=== PATIENT | female | born 1970 | race Asian ===

== ENCOUNTER 2023-04-08 00:43 | Inpatient (IN) | payer SELFPAY ==
[2023-04-08] VITALS (16 sets, daily range): BP systolic 125–154; BP diastolic 77–93; PULSE 57–103; RESP 11–24; TEMP 35.5–36.6; O2SAT 77–100; BMI 32.6; BMI 36.3
--- NOTE | 2023-04-08 00:52 | ED.RN ---
THIS RN QUESTIONED PT VISITORS IF SHE HAS ANY ALLERGIES OR PERTINENT PAST MEDICAL HISTORY. AMARI CALLED PT . HE IS UNSURE OF ANY PAST MEDICAL HISTORY/ALLERGIES. PT NOT RESPONSIVE TO VOCAL STIMULI.
--- NOTE | 2023-04-08 00:54 | RAD_ITS ---
INDICATION: ? Aspiration EXAMINATION/TECHNIQUE: X-RAY - AP view chest COMPARISON: None. FINDINGS: LINES/DEVICES: None. LUNGS: No pulmonary edema or focal airspace consolidation. No sizable pleural effusion. No pneumothorax detected. MEDIASTINUM AND CARDIOVASCULAR STRUCTURES: Heart size within normal limits for imaging technique. Central airways and mediastinal contour are unremarkable. BONES AND SOFT TISSUES: No acute findings. RAD/Chest 1 View (Portable) IMPRESSION: No radiographic evidence of acute cardiopulmonary disease. Electronically Signed: Ari Mcnally MD at 2:23 EDT ,
--- NOTE | 2023-04-08 00:54 | CT_ITS ---
INDICATION: Altered mental status EXAMINATION: CT Head or Brain W/O Contrast Injection TECHNIQUE: Multiple axial images were obtained of the head without intravenous contrast. A radiation dose optimization technique was used for this scan. IV Contrast dosage and agent: None. COMPARISON: None FINDINGS: BRAIN PARENCHYMA: No intra- or extra-axial hemorrhage. No evidence of acute major territorial infarct. No intracranial mass or mass effect. There is preservation of the jasso/white matter interface. Posterior fossa structures are unremarkable. Tiny benign basal ganglia calcifications. CSF SPACES: Appropriate for age. No hydrocephalus. Basal cisterns are patent. CALVARIUM, SKULL BASE, PARANASAL SINUSES AND MASTOID AIR CELLS: Calvarium is intact. Mild sinus mucosal thickening. Mastoid air cells are well-pneumatized. ORBITS: Unremarkable. CT/Brain/Head without Contrast IMPRESSION: No evidence of acute intracranial abnormality. Electronically Signed: Ari Mcnlaly MD at 1:38 EDT ,
--- NOTE | 2023-04-08 00:54 | EKG12_ITS ---
Test Reason : DYSRHYTHMIA Blood Pressure : / mmHG Vent. Rate : 075 BPM Atrial Rate : 075 BPM P-R Int : 174 ms QRS Dur : 072 ms QT Int : 416 ms P-R-T Axes : 052 066 051 degrees QTc Int : 464 ms Normal sinus rhythm Normal ECG Confirmed by KRISTOPHER MARI, NIESHA ([id number]), school photograph editor DEENA CARPIO ([id number]) on 04/09/2023 11:34:45 AM Referred By: HANSEL Confirmed By:HARISH SUMMERS MD
[2023-04-08 01:00] LABS: Allen Test Positive; Base Excess 1 mmol/L (-2 to +2); Bicarbonate 26.5 mmol/L (22-26); Blood Gas Specimen Type ART; O2 Delivery Device Room Air; PO2 74 mmHG (75-100); SITE L Radial; SO2 93 % (95-99); Total Carbon Dioxide 28 mmol/L; pCO2 49.8 mmHg (35-45); pH 7.34 (7.35-7.45)
[2023-04-08] MEDS: 0.9% Normal Saline 1,000 ML 999 ML IV (01:02)
[2023-04-08] MEDS: Ondansetron 4 MG/2 ML Vial IV ×2 (01:03→02:08)
[2023-04-08 01:09] LABS: Absolute Lymphocyte Count 4.13 X10^3/uL (0.83-4.51); Absolute Neutrophil Count 5.1 X10^3/uL (2.0-7.7); Basophil# 0.06 X10^3/uL; Basophil% 0.6 % (0-1); Eosinophil# 0.21 X10^3/uL; Eosinophils% 2.1 % (0-5); Hematocrit 41.5 % (37-47); Hemoglobin 12.2 g/dL (12.0-15.0); Lymphocyte # 4.13 X10^3/ul (0.83-4.51); Lymphocyte % 40.4 % (19-41); Mean Corp Hgb Conc 29.4 g/dL (32-36); Mean Corpuscular Hgb 19.9 pg (27.0-32.0); Mean Corpuscular Volume 67.6 fL (81-99); Mean Platelet Vol. 11.1 fl (6.2-12.0); Monocyte# 0.68 X10^3/uL; Monocyte% 6.7 % (0-10); NRBC Flagged by Analyzer 0 % (0-5); Neutrophil # 5.11 X10^3/uL (2.7-7.7); Neutrophil % 49.9 % (47-70); Platelet Count 283 K/mm3 (150-450); RBC Distribution Width CV 15.9 % (11.6-14.6); RBC Distribution Width SD 36.8 fl (35.1-43.9); Red Blood Count 6.14 M/mm3 (4.2-5.4); White Blood Count 10.2 K/mm3 (4.4-11.0)
[2023-04-08 01:32] LABS: Bacteria 0 SEEN /hpf (None Seen); Mucous, Urine 0 SEEN /hpf (<or=2+); Red Blood Cells-Urine 0 SEEN /hpf (0-5); Squamous Epithelial Cells - UA 0 SEEN /hpf (5-10); White Blood Cells 0 SEEN /hpf (0-5)
[2023-04-08 01:34] LABS: Color, Urine Yellow (Yellow); Glucose, Dipstick Normal (Normal); Ketone-Dipstick Negative (Negative); Leukocyte Esterase-Dipstick Negative /ul (Negative); Nitrite-Dipstick Negative (Negative); Occult Blood-Urine 10 /ul (Negative); Protein-Dipstick Negative (Negative); Specific Gravity, Urine 1.015 (1.002-1.030); Urine Bilirubin Dipstick Negative (Negative); Urine Clarity Clear (Clear); Urine Urobilinogen Normal (Normal)
[2023-04-08 01:38] LABS: Acetaminophen (Tylenol) Level < 2.0 ug/mL (10.0-30.0); Alcohol, Blood (Medical)-Serum < 3.0 mg/dL; Salicylate < 1.7 mg/dL (2.8-20.0)
--- NOTE | 2023-04-08 01:38 | CT_ITS ---
INDICATION: altered mental status EXAMINATION: CTA CAROTIDS AND BRAIN TECHNIQUE: Routine CTA of the head and neck was performed with post processing of the angiographic images for volumetric reconstructions. In addition, images were obtained of the [place]. Nascet criteria using the distal ICAs for comparison were used for evaluation of stenoses. 2-D and 3-D reconstructions were reviewed. A radiation dose optimization technique was used for this scan. IV Contrast dosage and agent: 100 cc [id number] COMPARISON: Concurrent unenhanced CT brain FINDINGS: --NECK: AORTIC ARCH AND BRANCHES: No aneurysm, dissection, occlusion or significant stenosis. RIGHT CCA: No occlusion, significant stenosis or dissection. RIGHT ICA: No occlusion, significant stenosis or dissection. LEFT CCA: No occlusion, significant stenosis or dissection. LEFT ICA: No occlusion, significant stenosis or dissection. RIGHT VERTEBRAL ARTERY: No occlusion, significant stenosis or dissection. LEFT VERTEBRAL ARTERY: No occlusion, significant stenosis or dissection. NECK SOFT TISSUES: Unremarkable. LUNG APICES: Clear. BONES: Unremarkable. --HEAD: --Anterior circulation: ICAs: No significant stenosis at the intracranial/visualized segments. ACAs: Congenital absence right A1 segment. Otherwise, right anterior cerebral artery is patent with no significant stenosis, supplied by anterior communicating artery. Left anterior cerebral artery with no significant stenosis. ACOM: Present. MCAs: No significant stenosis at the visualized segments. --Posterior circulation: PCOMs: Patent on the right and absent on the left. cash on delivery clerk: No significant stenosis at the visualized segments. BASILAR ARTERY: No significant stenosis. VERTEBRAL ARTERIES: No significant stenosis at the intradural/visualized segments. No evidence of intracranial aneurysm, enhancing mass or vascular malformation. CT/CTA Head AND Neck W/ Contrast IMPRESSION: Negative CTA Head and Neck. Electronically Signed: Ari Mcnally MD at 2:53 EDT ,
[2023-04-08 01:39] LABS: AST(SGOT) 12 U/L (15-37); Alanine Aminotransfer ALT/SGPT 18 U/L (13-56); Albumin, Serum 3.4 g/dL (3.2-5.0); Alkaline Phosphatase 76 U/L (45-117); Anion Gap 6 (5-15); BUN 14 mg/dL (7-18); Bilirubin, Direct 0.09 mg/dL (0.00-0.30); Calcium,Total 8.5 mg/dL (8.5-10.1); Chloride 108 mmol/L (98-107); Estimated Creatinine Clearance 58.12 ml/min; Globulin 3.9 g/dL (2.2-4.2); Glucose 151 mg/dL (74-106); Potassium 3.6 mmol/L (3.5-5.1); Protein, Total 7.3 g/dL (6.4-8.2); Sodium Level 139 mmol/L (136-145)
[2023-04-08 02:11] LABS: Amphetamine Urine VISTA NEGATIVE (<1000 ng/mL); Barbiturate Urine VISTA NEGATIVE (< 200 ng/mL); Benzodiazepine Urine VISTA NEGATIVE (< 200 ng/mL); Cocaine Urine VISTA NEGATIVE (< 300 ng/mL); Ecstacy Urine VISTA NEGATIVE (< 500 ng/mL); Methadone Urine VISTA NEGATIVE (< 300 ng/mL); PCP Urine VISTA NEGATIVE (< 25 ng/mL); THC Urine VISTA POSITIVE (< 50 ng/mL); Vista UDS pH Range 6
--- NOTE | 2023-04-08 05:08 | PCM.HP.STD ---
HPI - General General Date of Admission: 04/08/23 Date of Service: 04/08/23 Chief Complaint: Unresponsiveness HPI Narrative DINO MORENO, is a 52 F with no medical history who presents emergency department with syncope. Reportedly patient was throwing up and then she passed out. History was obtained from emergency department doctor since patient's was lethargic and had a language barrier. Family was unavailable and it was nighttime to obtain history by phone call. Per emergency department doctor patient was obtunded on arrival and desaturated into the 80s for which reason nasal cannula oxygen was placed. [facility], [facility] Medical History unable to obtain Home Medications Unobtainable 04/08/23 [History Last Taken Unknown] Allergy/AdvReac Type Severity Reaction Status Date / Time Unable to Assess Allergy Verified 04/08/23 00:50 unable to obtain unable to obtain Social History Smoking Status: Unknown if ever smoked ROS Review of Systems ROS Unobtainable: due to mental status Vital Signs Vital Signs Vital Signs: 04/08/23 00:45 04/08/23 00:48 04/08/23 00:48 Temperature 96.8 F L 96.8 F L Temperature Source Temporal Temporal Pulse Rate 103 H 91 57 L Respiratory Rate 24 H 23 H 24 H Blood Pressure 143/93 H 143/93 H 143/93 H Blood Pressure Mean 109 109 109 Pulse Ox 88 100 98 Oxygen Delivery Method Room Air Room Air Room Air Oxygen Flow Rate (L/min) 04/08/23 01:31 04/08/23 01:36 04/08/23 01:48 Temperature 96.1 F L Temperature Source Core Pulse Rate 73 72 69 Respiratory Rate 16 16 14 Blood Pressure 146/78 H Blood Pressure Mean 100 Pulse Ox 77 96 100 Oxygen Delivery Method Room Air Nasal Cannula Room Air Oxygen Flow Rate (L/min) 4 04/08/23 02:05 04/08/23 02:05 04/08/23 02:52 Temperature 96.0 F L 95.9 F L Temperature Source Core Core Pulse Rate 85 82 66 Respiratory Rate 19 H 21 H 11 L Blood Pressure 143/86 H 143/86 H 133/81 H Blood Pressure Mean 105 105 98 Pulse Ox 100 100 100 Oxygen Delivery Method Room Air Nasal Cannula Nasal Cannula Oxygen Flow Rate (L/min) 4 4 04/08/23 03:00 04/08/23 03:00 04/08/23 04:00 Temperature 96.2 F L 96.4 F L Temperature Source Core Core Pulse Rate 57 L 57 L 59 L Respiratory Rate 13 13 11 L Blood Pressure 131/82 H 131/82 H 145/91 H Blood Pressure Mean 98 98 109 Pulse Ox 100 100 100 Oxygen Delivery Method Nasal Cannula Nasal Cannula Nasal Cannula Oxygen Flow Rate (L/min) 3 3 3 04/08/23 04:00 Temperature Temperature Source Pulse Rate 59 L Respiratory Rate 11 L Blood Pressure 145/91 H Blood Pressure Mean 109 Pulse Ox 100 Oxygen Delivery Method Nasal Cannula Oxygen Flow Rate (L/min) 3 Weight Weight: 86.3 kg Body Mass Index (BMI) 32.6 Physical Exam Narrative Physical exam: General: Well-nourished, well-developed. Head: Normocephalic, atraumatic, no tenderness Eyes: Dilated pupils ENT, no trauma, no rhinorrhea Neck: Nontender, No thyromegaly. CVS: Regular rate and rhythm. S1-S2 present. No murmur, gallop or rub. Respiratory : clear to auscultation bilaterally, chest wall nontender Abdomen: Soft, nontender, nondistended, normal bowel sounds, no masses : Keen catheter in place Back: Nontender, no CVA tenderness Extremities: Nontender full range of motion, no trauma Skin: Normal color, no trauma, abrasions Neuro: Lethargic. Psychiatry: Normal mood. Normal affect. Results Lab / Micro Data 04/08/23 00:52 04/08/23 00:52 Labs: Laboratory Results - last 24 hr 04/08/23 00:52: WBC 10.2, RBC 6.14 H, Hgb 12.2, Hct 41.5, MCV 67.6 L, MCH 19.9 L, MCHC 29.4 L, RDW Std Deviation 36.8, RDW Coeff of [place] 15.9 H, Plt Count 283, MPV 11.1, Immature Gran % (Auto) 0.300, Neut % (Auto) 49.9, Lymph % (Auto) 40.4, [place] % (Auto) 6.7, Eos % (Auto) 2.1, Baso % (Auto) 0.6, Absolute Neuts (auto) 5.1, Absolute Lymphs (auto) 4.13, Nucleated RBC % 0, Sodium 139, Potassium 3.6, Chloride 108 H, Carbon Dioxide 25.0, Anion Gap 6, BUN 14, Creatinine 1.00, Estim Creat Clear Calc 58.12, Est GFR (MDRD) Af Amer TNP, Est GFR (MDRD) Non-Af TNP, BUN/Creatinine Ratio 14.0, Glucose 151 H, Calcium 8.5, Total Bilirubin 0.20, Direct Bilirubin 0.09, AST 12 L, ALT 18, Alkaline Phosphatase 76, Ammonia 15.0, Total Protein 7.3, Albumin 3.4, Globulin 3.9, TSH 2.90, Salicylates < 1.7 L, Acetaminophen < 2.0 L, Ethyl Alcohol < 3.0 04/08/23 01:25: Urine Color Yellow, Urine Clarity Clear, Urine pH 7.0, Ur Specific [place] 1.015, Urine Protein Negative, Urine Glucose (UA) Normal, Urine Ketones Negative, Urine Occult Blood 10 H, Urine Nitrite Negative, Urine Bilirubin Negative, Urine Urobilinogen Normal, Ur Leukocyte Esterase Negative, Urine RBC 0 SEEN, Urine WBC 0 SEEN, Ur Squamous Epith Cells 0 SEEN, Urine Bacteria 0 SEEN, Urine Mucus 0 SEEN, Urine Opiates Screen NEGATIVE, Urine Methadone Screen NEGATIVE, Ur Barbiturates Screen NEGATIVE, Ur Phencyclidine Scrn NEGATIVE, Ur Amphetamines Screen NEGATIVE, MDMA (Ecstasy) Screen NEGATIVE, U Benzodiazepines Scrn NEGATIVE, Urine Cocaine Screen NEGATIVE, U Cannabinoids Screen POSITIVE H, Ur Drug Screen Comment ABG Data ABG results: ABG 04/08/23 00:56 Specimen Type ART Sample Site L Radial pH 7.34 L Bicarbonate Actual 26.5 H Total CO2 28 Base Excess 1 O2 Saturation 93 L ABG pCO2 49.8 H ABG pO2 74 L Asad Test Positive O2 Delivery Device Room Air Radiology Impression Brain CT 04/08/23 00:54 IMPRESSION: No evidence of acute intracranial abnormality. Electronically Signed: Ari Mcnally MD at 1:38 EDT , Chest X-Ray 04/08/23 00:54 IMPRESSION: No radiographic evidence of acute cardiopulmonary disease. Electronically Signed: Ari Mcnally MD at 2:23 EDT , Head/Neck CTA 04/08/23 01:38 IMPRESSION: Negative CTA Head and Neck. Electronically Signed: Ari Mcnally MD at 2:53 EDT , Assessment & Plan Assessment/Plan (1) Unresponsive state: (2) Syncope: QUALIFIERS: Syncope type: vasovagal syncope Qualified Code(s): R55 - Syncope and collapse (3) Nausea & vomiting: QUALIFIERS: Vomiting type: unspecified Qualified Code(s): R11.2 - Nausea with vomiting, unspecified (4) Aspiration into airway: QUALIFIERS: Encounter type: initial encounter Qualified Code(s): T17.908A - Unspecified foreign body in respiratory tract, part unspecified causing other injury, initial encounter PLAN: Plan Unresponsive state Head and neck CTA negative. Brain CT negative Resolved with patient able to respond but lethargic. Admitted PCU. Clinical monitoring. Keep NPO. Gentle IV hydration Syncope EKG shows sinus rhythm. Check echocardiogram. Nausea and vomiting Cannot rule out gastroenteritis/gastritis. Protonix ordered. Aspiration Chest x-ray independent interpreted did not show any acute cardiopulmonary process and I agree with radiology interpretation. Review of labs did not show any leukocytosis. However with hypoxia started on Unasyn at the Emergency and continued. Trend CBC DVT prophylaxis: Subcutaneous Lovenox ordered. Charges/Coding Visit Charges Inpatient E&M: 76782 Init Hosp L3
--- NOTE | 2023-04-08 05:15 | EDS_ITS ---
HPI History of Present Illness Chief Complaint: Unresponsive Informant: family Narrative Narrative: Patient is a 52-year-old female who does not speak Czech. She was brought in by family. Family states that they were up this evening and they were sitting around talking when patient suddenly started having bouts of vomiting and then passed out. They states she would not awake and therefore they brought her to the hospital for evaluation. The family is unaware of any medical condition or daily medications and patient cannot offer any further history based on language barrier and the fact that she is unresponsive. PFSH PFSH Medical History unable to obtain unable to obtain Home Medications Unobtainable 04/08/23 [History Last Taken Unknown] Allergy/AdvReac Type Severity Reaction Status Date / Time Unable to Assess Allergy Verified 04/08/23 00:50 Social History Smoking Status: Unknown if ever smoked ROS ROS ED Review of Systems ROS Unobtainable: due to mental status EXAM Physical Exam Const Vital Signs: 04/08/23 00:45 04/08/23 00:48 04/08/23 00:48 Temperature 96.8 F L 96.8 F L Temperature Source Temporal Temporal Pulse Rate 103 H 91 57 L Respiratory Rate 24 H 23 H 24 H Blood Pressure 143/93 H 143/93 H 143/93 H Blood Pressure Mean 109 109 109 Pulse Ox 88 100 98 Oxygen Delivery Method Room Air Room Air Room Air Oxygen Flow Rate (L/min) 04/08/23 01:31 04/08/23 01:36 04/08/23 01:48 Temperature 96.1 F L Temperature Source Core Pulse Rate 73 72 69 Respiratory Rate 16 16 14 Blood Pressure 146/78 H Blood Pressure Mean 100 Pulse Ox 77 96 100 Oxygen Delivery Method Room Air Nasal Cannula Room Air Oxygen Flow Rate (L/min) 4 04/08/23 02:05 04/08/23 02:05 04/08/23 02:52 Temperature 96.0 F L 95.9 F L Temperature Source Core Core Pulse Rate 85 82 66 Respiratory Rate 19 H 21 H 11 L Blood Pressure 143/86 H 143/86 H 133/81 H Blood Pressure Mean 105 105 98 Pulse Ox 100 100 100 Oxygen Delivery Method Room Air Nasal Cannula Nasal Cannula Oxygen Flow Rate (L/min) 4 4 04/08/23 03:00 04/08/23 03:00 04/08/23 04:00 Temperature 96.2 F L 96.4 F L Temperature Source Core Core Pulse Rate 57 L 57 L 59 L Respiratory Rate 13 13 11 L Blood Pressure 131/82 H 131/82 H 145/91 H Blood Pressure Mean 98 98 109 Pulse Ox 100 100 100 Oxygen Delivery Method Nasal Cannula Nasal Cannula Nasal Cannula Oxygen Flow Rate (L/min) 3 3 3 04/08/23 04:00 Temperature Temperature Source Pulse Rate 59 L Respiratory Rate 11 L Blood Pressure 145/91 H Blood Pressure Mean 109 Pulse Ox 100 Oxygen Delivery Method Nasal Cannula Oxygen Flow Rate (L/min) 3 Positive well nourished, well developed and obese General Appearance ED: well developed Nutritional Appearance: obese HEENT Reports moist mucous membranes HEENT Narrative: No tongue or lip swelling no oral lesions no airway edema or compromise Eyes EOMs intact bilaterally Eyes Narrative: Pupils are dilated and sluggish to respond to light there is mild scleral injection noted Neck supple Neck Narrative: No nuchal rigidity or meningeal signs Chest Wall palpation of chest normal Chest Narrative: No bony deformity or crepitance Resp normal respiratory effort and clear to auscultation bilaterally Resp Narrative: Breath sounds are diminished throughout but overall clear to auscultation with no signs of respiratory distress Cardio regular rate and regular rhythm Rate: other Other Details: Radial pulses are plus 2 out of 4 bilaterally are equal and symmetric GI non-distended GI Narrative: Abdomen is soft and nondistended with normal active bowel sounds. No rigidity or pulsatile mass Auscultation: normoactive bowel sounds Palpation: soft Extremity normal to inspection Neuro Neuro Narrative: Patient is lethargic/obtunded with GCS of 12. She can feel and localize pain in all extremities as well as a sternal rub. She will wake with this but then quickly fall back asleep. There is no obvious facial droop noted. When patient does awake she is able to turn her head both left and right going against any type of meningeal irritation. Sensorium / Orientation: lethargic Psych Psych Narrative: Patient has an obtunded affect Skin no rashes or lesions noted MDM MDM MDM Narrative Medical decision making narrative: Patient presented to the ER mildly tachycardic and unresponsive but she was breathing spontaneously and protecting her airway as she had a gag reflex and therefore I felt no need for emergent intubation. Differential diagnosis includes an acute subarachnoid bleed versus ischemic stroke versus aspiration pneumonia versus potential alcohol or drug ingestion. Because of her altered mental state basic labs and imaging studies were obtained. X-ray revealed no acute infiltrate. Noncontrast head CT revealed no acute bleed. Patient's pulse ox did drop into the mid to low 80s and with concern for aspiration blood cultures were obtained and she was started on Unasyn as well as oxygen. Work-up revealed no clinically significant findings other than positive THC in the patient's system which could account for her altered mental status and nausea and would correlate with her dilated pupils and mild scleral injection. Patient was washed in the ER for approximate mental status remained depressed with GCS of 12 but she continued to protect her airway. Of note when she did arrive she had few bouts of nausea and vomiting and her heart rate would go from 80 and 90 down to 40 indicating a strong vagal response which is most likely cause for syncope at home. At this time as patient is still unresponsive and requiring supplemental oxygen and being monitored for potential aspiration pneumonia I do not feel it is safe for her to be discharged. Therefore medicine was contacted and they do agree to watch the patient secondary to her depressed mental status and for potential of aspiration History & Record Review Discussion w/independent historian: Family Lab Data Attestation: I reviewed the patient's lab results. Labs: Laboratory Results - last 24 hr 04/08/23 04/08/23 00:52 01:25 WBC 10.2 RBC 6.14 H Hgb 12.2 Hct 41.5 MCV 67.6 L MCH 19.9 L MCHC 29.4 L RDW Std Deviation 36.8 RDW Coeff of [place] 15.9 H Plt Count 283 MPV 11.1 Immature Gran % (Auto) 0.300 Neut % (Auto) 49.9 Lymph % (Auto) 40.4 [place] % (Auto) 6.7 Eos % (Auto) 2.1 Baso % (Auto) 0.6 Absolute Neuts (auto) 5.1 Absolute Lymphs (auto) 4.13 Nucleated RBC % 0 Sodium 139 Potassium 3.6 Chloride 108 H Carbon Dioxide 25.0 Anion Gap 6 BUN 14 Creatinine 1.00 Estim Creat Clear Calc 58.12 Est GFR (MDRD) Af Amer TNP Est GFR (MDRD) Non-Af TNP BUN/Creatinine Ratio 14.0 Glucose 151 H Calcium 8.5 Total Bilirubin 0.20 Direct Bilirubin 0.09 AST 12 L ALT 18 Alkaline Phosphatase 76 Ammonia 15.0 Total Protein 7.3 Albumin 3.4 Globulin 3.9 TSH 2.90 Urine Color Yellow Urine Clarity Clear Urine pH 7.0 Ur Specific [place] 1.015 Urine Protein Negative Urine Glucose (UA) Normal Urine Ketones Negative Urine Occult Blood 10 H Urine Nitrite Negative Urine Bilirubin Negative Urine Urobilinogen Normal Ur Leukocyte Esterase Negative Urine RBC 0 SEEN Urine WBC 0 SEEN Ur Squamous Epith Cells 0 SEEN Urine Bacteria 0 SEEN Urine Mucus 0 SEEN Salicylates < 1.7 L Urine Opiates Screen NEGATIVE Urine Methadone Screen NEGATIVE Acetaminophen < 2.0 L Ur Barbiturates Screen NEGATIVE Ur Phencyclidine Scrn NEGATIVE Ur Amphetamines Screen NEGATIVE MDMA (Ecstasy) Screen NEGATIVE U Benzodiazepines Scrn NEGATIVE Urine Cocaine Screen NEGATIVE U Cannabinoids Screen POSITIVE H Ur Drug Screen Comment Ethyl Alcohol < 3.0 ABG Data ABG results: ABG 04/08/23 00:56 Specimen Type ART Sample Site L Radial pH 7.34 L Bicarbonate Actual 26.5 H Total CO2 28 Base Excess 1 O2 Saturation 93 L ABG pCO2 49.8 H ABG pO2 74 L Asad Test Positive O2 Delivery Device Room Air Radiography Diagnostic Testing: Clinical Impression(s) from Imaging Studies Brain CT 04/08/23 00:54 IMPRESSION: No evidence of acute intracranial abnormality. Electronically Signed: Ari Mcnally MD at 1:38 EDT , Chest X-Ray 04/08/23 00:54 IMPRESSION: No radiographic evidence of acute cardiopulmonary disease. Electronically Signed: Ari Mcnally MD at 2:23 EDT , Head/Neck CTA 04/08/23 01:38 IMPRESSION: Negative CTA Head and Neck. Electronically Signed: Ari Mcnally MD at 2:53 EDT , Chest x-ray as interpreted by the emergency medicine physician reveals no acute infiltrate pneumothorax or pleural effusion Management Discussion w/another healthcare provider: Hospitalist Discharge Plan Dx/Rx/DC Orders Clinical Impression: Unresponsive state, Marijuana use, Syncope, Nausea & vomiting Disposition Disposition: Acute Care [facility]
--- NOTE | 2023-04-08 07:48 | ECHOD_ITS ---
Reason For Study: SYNCOPE Procedure This was a 2D Doppler, Color Flow transthoracic echocardiogram. Technically difficult study due to language barrier. Patient scanned supine. Exam performed portable in patient room. Left Ventricle Normal LV size. The estimated ejection fraction is 65 %. No evidence for diastolic dysfunction. No regional wall motion abnormalities noted. Right Ventricle Normal RV size. Normal systolic function. Atria Normal left atrium. Normal right atrium. No doppler evidence for ASD. Mitral Valve There is no mitral valve stenosis. No mitral valve insufficiency. Tricuspid Valve There is no tricuspid stenosis. Unable to estimate RV systolic pressure due to inadequate jet, pulmonary artery pressure probably normal. Aortic Valve Trisinus/trileaflet aortic valve. There is no aortic stenosis. No aortic valve insufficiency. Pulmonic Valve There is no pulmonic valvular stenosis. No pulmonic valve insufficiency. Great Vessels Normal aortic root. MMode/2D Measurements & Calculations LVIDd: 4.2 cm IVSd: 1.3 cm Ao root diam: 3.0 cm LVIDs: 3.2 cm LVPWd: 1.0 cm FS: 23.7 % LAV(MOD-bp): 42.6 ml LVAd ap4: 21.9 cm2 SV(MOD-sp4): 41.1 ml LAV(MOD-bp) Indexed: 23.6 ml/m2 LVLd ap4: 7.3 cm LAV(MOD-sp2): 47.6 ml EDV(MOD-sp4): 54.3 ml LAV(MOD-sp4): 35.1 ml EDV(sp4-el): 56.0 ml LVAs ap4: 9.8 cm2 LVLs ap4: 5.9 cm ESV(MOD-sp4): 13.2 ml ESV(sp4-el): 13.8 ml EF(MOD-sp4): 75.8 % EF(sp4-el): 75.3 % SV(sp4-el): 42.1 ml LA dimension(2D): 3.4 cm LA A4 area: 15.0 cm2 RA A4 area: 6.3 cm2 TAPSE: 2.8 cm Time Measurements MV dec time: 0.16 sec Doppler Measurements & Calculations MV E max herson: 99.1 cm/sec Lat Peak E' Herson: 10.8 cm/sec Med Peak E' Herson: 8.0 cm/sec MV A max herson: 99.7 cm/sec E/E' lat: 9.1 E/E' med: 12.4 MV E/A: 0.99 MV V2 max: 99.8 cm/sec Ao V2 max: 143.5 cm/sec MV max P.0 mmHg MV dec slope: 628.3 cm/sec2 Ao max P.2 mmHg MV V2 mean: 54.9 cm/sec Ao V2 mean: 95.5 cm/sec MV mean P.5 mmHg Ao mean P.2 mmHg MV V2 VTI: 34.8 cm Ao V2 VTI: 33.8 cm AV (velocity ratio): 0.76 LV V1 max: 104.0 cm/sec PA V2 max: 87.1 cm/sec LV V1 max P.3 mmHg PA V2 mean: 59.7 cm/sec LV V1 mean P.4 mmHg LV V1 mean: 72.4 cm/sec LV V1 VTI: 25.7 cm ECHO/Echo Complete Interpretation Summary The estimated ejection fraction is 65 %. No evidence for diastolic dysfunction. Ordering Physician: Manuel Griffith Referring Physician: NO PCP Performed By: Vicki Hanson RCS
[2023-04-08] MEDS: Lactated Ringers 1,000 ML 75 ML IV ×2 (08:09→20:47)
--- NOTE | 2023-04-08 08:26 | PN.HOSP_ITS ---
Reason for Visit Reason for Visit: Diagnoses Nausea with vomiting, unspecified (04/08/23) Other symptoms and signs involving cognitive functions and awareness (04/08/23) Syncope and collapse (04/08/23) Unspecified foreign body in respiratory tract, part unspecified causing other injury, initial encounter (04/08/23) Subjective Subjective Patient resting comfortably in bed and wakes up on prompting Objective Data Objective Data Vital Signs: Vital Signs Temp Pulse Resp BP Pulse Ox O2 Del Method O2 Flow Rate 97.9 F 59 L 16 154/88 H 100 Nasal Cannula 4 04/08/23 08:24 04/08/23 06:43 04/08/23 06:43 04/08/23 06:43 04/08/23 06:43 04/08/23 06:43 04/08/23 06:43 Oxygen Flow Rate (L/min) 4 Oxygen Delivery Method Nasal Cannula Weight: 84.3 kg Body Mass Index (BMI) 36.3 Intake & Output: Intake and Output for Last 24 Hours 04/06/23 04/07/23 04/08/23 23:59 23:59 23:59 Intake Total 1112 / 1112 Balance 1112 / 1112 Lab / Micro Data 04/08/23 00:52 04/08/23 00:52 Labs: Laboratory Results - last 24 hr 04/08/23 00:52: WBC 10.2, RBC 6.14 H, Hgb 12.2, Hct 41.5, MCV 67.6 L, MCH 19.9 L , MCHC 29.4 L, RDW Std Deviation 36.8, RDW Coeff of Mariposa 15.9 H, Plt Count 283, MPV 11.1, Immature Gran % (Auto) 0.300, Neut % (Auto) 49.9, Lymph % (Auto) 40.4, [place] % (Auto) 6.7, Eos % (Auto) 2.1, Baso % (Auto) 0.6, Absolute Neuts (auto) 5.1, Absolute Lymphs (auto) 4.13, Nucleated RBC % 0, Sodium 139, Potassium 3.6, Chloride 108 H, Carbon Dioxide 25.0, Anion Gap 6, BUN 14, Creatinine 1.00, Estim Creat Clear Calc 58.12, Est GFR (MDRD) Af Amer TNP, Est GFR (MDRD) Non-Af TNP, BUN/Creatinine Ratio 14.0, Glucose 151 H, Calcium 8.5, Total Bilirubin 0.20, Direct Bilirubin 0.09, AST 12 L, ALT 18, Alkaline Phosphatase 76, Ammonia 15.0, Total Protein 7.3, Albumin 3.4, Globulin 3.9, TSH 2.90, Salicylates < 1.7 L, Acetaminophen < 2.0 L, Ethyl Alcohol < 3.0 04/08/23 01:25: Urine Color Yellow, Urine Clarity Clear, Urine pH 7.0, Ur Specific [place] 1.015, Urine Protein Negative, Urine Glucose (UA) Normal, Urine Ketones Negative, Urine Occult Blood 10 H, Urine Nitrite Negative, Urine Bili palmre Negative, Urine Urobilinogen Normal, Ur Leukocyte Esterase Negative, Urine RBC 0 SEEN, Urine WBC 0 SEEN, Ur Squamous Epith Cells 0 SEEN, Urine Bacteria 0 SEEN, Urine Mucus 0 SEEN, Urine Opiates Screen NEGATIVE, Urine Methadone Screen NEGATIVE, Ur Barbiturates Screen NEGATIVE, Ur Phencyclidine Scrn NEGATIVE, Ur Amphetamines Screen NEGATIVE, MDMA (Ecstasy) Screen NEGATIVE, U Benzodiazepines Scrn NEGATIVE, Urine Cocaine Screen NEGATIVE, U Cannabinoids Screen POSITIVE H, Ur Drug Screen Comment ABG Data ABG results: ABG 04/08/23 00:56 Specimen Type ART Sample Site L Radial pH 7.34 L Bicarbonate Actual 26.5 H Total CO2 28 Base Excess 1 O2 Saturation 93 L ABG pCO2 49.8 H ABG pO2 74 L Asad Test Positive O2 Delivery Device Room Air Radiography Diagnostic Testing: Radiology Impression Brain CT 04/08/23 00:54 IMPRESSION: No evidence of acute intracranial abnormality. Electronically Signed: Ari Mcnally MD at 1:38 EDT , Chest X-Ray 04/08/23 00:54 IMPRESSION: No radiographic evidence of acute cardiopulmonary disease. Electronically Signed: Ari Mcnally MD at 2:23 EDT , Head/Neck CTA 04/08/23 01:38 IMPRESSION: Negative CTA Head and Neck. Electronically Signed: Ari Mcnally MD at 2:53 EDT , Physical Exam Narrative General: Wakes up and is alert and in no apparent distress HEENT: Atraumatic, normocephalic Eyes: Anicteric, normal conjunctiva, extraocular movements grossly intact Neck: Supple Respiratory: Clear to auscultation bilaterally, normal respiratory effort, snoring softly Cardiovascular: Regular rate and rhythm GI: Soft, nontender, nondistended Extremities: No edema Musculoskeletal: Moving all extremities Neuro: No overt focal neurological deficits Skin: No rashes appreciated Psych: Attempts to be cooperative Assessment & Plan Assessment/Plan (1) Syncope: QUALIFIERS: Syncope type: vasovagal syncope Qualified Code(s): R55 - Syncope and collapse (2) Nausea & vomiting: QUALIFIERS: Vomiting type: unspecified Qualified Code(s): R11.2 - Nausea with vomiting, unspecified (3) Aspiration into airway: QUALIFIERS: Encounter type: initial encounter Qualified Code(s): T17.908A - Unspecified foreign body in respiratory tract, part unspecified causing other injury, initial encounter PLAN: Plan #n/v -Unclear etiology -Liver function unremarkable -UA unremarkable -UDS positive for cannabinoids but otherwise negative -ppi ordered -04/08: Has not had nausea or vomiting for the past few hours, will obtain KUB however given this was primary problem likely leading to the vasovagal syncopal episode #syncope and decreased level of consciousness -CT and CTA head and neck negative -Npo -Gentle hydration -EKG w/ NSR -Admit to tele -when patient had nausea and vomiting in ED heart rate would go from 80s and 90s down to 40 indicating strong vagal response and suspect syncope was vasovagal in nature given this #hypoxia -Pulse ox to mid to low 80's on RA and placed on O2 -Cannot r/o aspiration though xray no acute pulm process -was started on unasyn in ED and this was continued -ABG obtained in ED with a PO2 of 74, PCO2 of 49.8 and O2 sat 93 with pH of 7.34 -7/4: O2 sats resolved, no longer hypoxic #DVT ppx: Lovenox subcu Ale Lawrence MD Time spent in the patient's overall evaluation,decision-making process, review of diagnostic data, adjustment of management, discussion with other providers, nursing nursing and ancillary staff involved in patient's care documentation, 38 minutes Charges/Coding Visit Charges Inpatient E&M: 66679 Subs Hosp L3
--- NOTE | 2023-04-08 10:09 | RAD_ITS ---
HISTORY: n/v. TECHNIQUE: XR Abdomen 1 View. COMPARISON: None. FINDINGS: BOWEL GAS PATTERN: Scattered stool and air in the nondilated colon. Paucity of bowel gas in the midabdomen. FREE AIR: Not assessed on supine view. CALCIFICATIONS: No abnormal calcifications observed. BONES: Unremarkable. RAD/Abdomen Single View (Portable) IMPRESSION: Nonspecific bowel gas pattern. Electronically Signed: Digna Melvin MD at 12:18 EDT ,
[2023-04-08] MEDS: Enoxaparin 40 MG/0.4 ML Syringe SC (10:54)
--- NOTE | 2023-04-08 11:47 | NURSING ---
Candles Pourer Ipad used to asked admission questions to patient. Candles Pourer ID #[id number] used.
[2023-04-08] MEDS: 0.9% Saline Lock 10 ML Syringe IV (14:36)
--- NOTE | 2023-04-08 15:58 | NURSING ---
Str[employer] Specialist #[id number] used to translate care to the patient and ask additional medical questions.
--- NOTE | 2023-04-08 16:04 | NURSING ---
Pt's jenkins catheter, that was placed in emergency prior to arrival to the unit, was removed at [address] Lawrence.
--- NOTE | 2023-04-08 18:33 | NURSING ---
Structural Technician #[id number] used to complete MRI checklist with patient.
[2023-04-09 02:56] VITALS: BP 122/76; BP 131/80; BP 133/77; PULSE 69; PULSE 72; PULSE 88; RESP 18; TEMP 36.7; O2SAT 96; O2SAT 97
[2023-04-09 06:06] LABS: Absolute Lymphocyte Count 1.88 X10^3/uL (0.83-4.51); Absolute Neutrophil Count 5.6 X10^3/uL (2.0-7.7); Basophil# 0.05 X10^3/uL; Basophil% 0.6 % (0-1); Eosinophil# 0.12 X10^3/uL; Eosinophils% 1.5 % (0-5); Hematocrit 38.5 % (37-47); Hemoglobin 11.4 g/dL (12.0-15.0); Lymphocyte # 1.88 X10^3/ul (0.83-4.51); Lymphocyte % 22.9 % (19-41); Mean Corp Hgb Conc 29.6 g/dL (32-36); Mean Corpuscular Hgb 20.4 pg (27.0-32.0); Mean Corpuscular Volume 68.8 fL (81-99); Mean Platelet Vol. 11.4 fl (6.2-12.0); Monocyte# 0.51 X10^3/uL; Monocyte% 6.2 % (0-10); NRBC Flagged by Analyzer 0 % (0-5); Neutrophil # 5.61 X10^3/uL (2.7-7.7); Neutrophil % 68.3 % (47-70); Platelet Count 230 K/mm3 (150-450); RBC Distribution Width CV 15.9 % (11.6-14.6); RBC Distribution Width SD 38.4 fl (35.1-43.9); White Blood Count 8.2 K/mm3 (4.4-11.0)
[2023-04-09 06:49] LABS: Anion Gap 3 (5-15); BUN 9 mg/dL (7-18); BUN/Creat Ratio 11.8 RATIO (10-20); Calcium,Total 8.3 mg/dL (8.5-10.1); Chloride 110 mmol/L (98-107); Creatinine, Serum 0.76 mg/dL (0.55-1.02); EST Glomerular Filtration Rate 85 mL/min (>60); Est Glom Filt Rate - Afr Amer 103 mL/min (>60); Estimated Creatinine Clearance 63.61 ml/min; Glucose 96 mg/dL (74-106); Potassium 3.5 mmol/L (3.5-5.1); Sodium Level 140 mmol/L (136-145)
[2023-04-09 08:44] LABS: CRP 6.12 mg/L (0.0-3.0)
[2023-04-09 08:45] LABS: Erythrocyte Sedimentation Rate 28 mm/hr (0-30)
[2023-04-09] MEDS: 0.9% Saline Lock 10 ML Syringe IV ×2 (08:45→16:28)
[2023-04-09] MEDS: Lactated Ringers 1,000 ML 75 ML IV ×2 (08:45→20:46)
[2023-04-09 08:47] VITALS: BP 132/77; PULSE 70; RESP 16; TEMP 36.7; O2SAT 95
--- NOTE | 2023-04-09 11:30 | MRI_ITS ---
EXAM: MR HEAD WITHOUT AND WITH INTRAVENOUS CONTRAST CLINICAL INDICATION: Headache, vision changes x1 month TECHNIQUE: Multiplanar and multisequence MR images of the brain were obtained without and with intravenous contrast. CONTRAST: IV 17 ml CLARISCAN COMPARISON: ct 04.08.23 FINDINGS: BRAIN AND EXTRA-AXIAL SPACES: Unremarkable. No intra- or extra-axial hemorrhage. No evidence of acute infarct. No intracranial mass or mass effect. There is preservation of the jasso/white matter interface. Posterior fossa structures are unremarkable. Ventricles are appropriate for age. No hydrocephalus. Basal cisterns are patent. SELLA: Unremarkable. Normal sella turcica, pituitary gland, infundibular stalk, optic chiasm and hypothalamus. AUDITORY SYSTEM: Unremarkable. The internal auditory canals are patent. BONES/JOINTS: Unremarkable. No discrete lytic or blastic abnormalities. SINUSES: Ethmoid sinus disease. MASTOID AIR CELLS: Unremarkable as visualized. Clear. ORBITS: Unremarkable as visualized. Both globes, extraocular muscles, optic nerves and retrobulbar fat appear unremarkable. VASCULATURE: Unremarkable as visualized. Normal flow voids in the major intracranial circulation. MRI/Brain W/WO Contrast IMPRESSION: No acute findings in the head/brain. Electronically Signed: Ryan Campoverde MD at 18:16 EDT ,
[2023-04-09] MEDS: Enoxaparin 40 MG/0.4 ML Syringe SC (13:39)
[2023-04-09 16:25] VITALS: BP 148/88; PULSE 65; RESP 17; TEMP 36.7; O2SAT 98
--- NOTE | 2023-04-09 17:00 | CASEMGMT ---
MK HAWKINS assessment: Elijah cvicu rn [id number] Isidro Alcantara RN, CM met with patient and patient's with the assistance from cvicu rn. Introduced self and role. Patient and agreeable to assessment. Per SW, pt and on tourist Visa and are currently staying w/a friend in [place]. See note. Verified friends' address and friend's phone # (Bar). Per , pt and live together and pt is independent @ baseline, manages her own medications and appt's, and uses no DME. They would like to utilize [facility] retail pharmacy @ d/c if pt is discharged home on any new medications. Friends provide transportation for pt. states they will utilize their friend in [place] who speaks Liberian to help and understand paperwork/resources that have been provided to them by . Both pt and deny having any discharge planning needs or concerns. Jody LEONARD RN, CM
--- NOTE | 2023-04-09 17:02 | CASEMGMT ---
Social Work Note Cameliaannette knapsack sprayer [id number] Isidrofrancisco j Olmosy KHOI met with patient and patient's with the assistance from knapsack sprayer, SW introduced herself and role as [facility] SW. Patient was agreeable to speak with present. SW inquired about patient's current living situation and citizenship status. Patient directed her to speak. Patient's reports they are in [place] on tourist [place] and stayed in [place] longer due to patient not feeling well. Patient's states they have been staying with a friend and are unsure how long they will be staying as they need to ask their friend how long patient and patient's can stay as their guest. SW briefly reviewed community resources and Medicaid application and inquired if their friend spoke Tongan and could assist with reviewing the resources. Patient's reports their friend can assist them with reviewing and was appreciative of the resources. Patient and patient's voiced no other concerns or needs. SW explained her co worker would be coming in to complete an assessment to assist with discharge planning, patient voiced understanding. KHOI briefly reviewed information gathered with MK PALACIOS, KENRICK
--- NOTE | 2023-04-09 17:29 | PCM.PN.HOSP ---
Reason for Visit Reason for Visit: Diagnoses Nausea with vomiting, unspecified (04/08/23) Other symptoms and signs involving cognitive functions and awareness (04/08/23) Syncope and collapse (04/08/23) Unspecified foreign body in respiratory tract, part unspecified causing other injury, initial encounter (04/08/23) Subjective Subjective Performed interview through manager e learning. Patient reports still intermittently getting a headache and still intermittently will feel dizzy sometimes when standing up sometimes when lying back to go to bed has difficulty answering further Objective Data Objective Data Vital Signs: Vital Signs Temp Pulse Resp BP Pulse Ox O2 Del Method O2 Flow Rate 98.1 F 65 17 148/88 H 98 Room Air 2 04/09/23 16:25 04/09/23 16:25 04/09/23 16:25 04/09/23 16:25 04/09/23 16:25 04/09/23 16:25 04/08/23 15:18 Oxygen Flow Rate (L/min) 2 Oxygen Delivery Method Room Air Weight: 84.3 kg Body Mass Index (BMI) 36.3 Intake & Output: Intake and Output for Last 24 Hours 04/07/23 04/08/23 04/09/23 23:59 23:59 23:59 Intake Total 2635.5 / 2635.5 1477.25 / 1477.25 Output Total 750 / 750 Balance 1885.5 / 1885.5 1477.25 / 1477.25 Lab / Micro Data 04/09/23 05:30 04/09/23 05:30 Labs: Laboratory Results - last 24 hr 04/09/23 05:30: WBC 8.2, RBC 5.60 H, Hgb 11.4 L, Hct 38.5, MCV 68.8 L, MCH 20.4 L, MCHC 29.6 L, RDW Std Deviation 38.4, RDW Coeff of Marip[place] 15.9 H, Plt Count 230, MPV 11.4, Immature Gran % (Auto) 0.500, Neut % (Auto) 68.3, Lymph % (Auto) 22.9, [place] % (Auto) 6.2, Eos % (Auto) 1.5, Baso % (Auto) 0.6, Absolute Neuts (auto) 5.6, Absolute Lymphs (auto) 1.88, Nucleated RBC % 0, ESR 28, Sodium 140, Potassium 3.5, Chloride 110 H, Carbon Dioxide 27.0, Anion Gap 3 L, BUN 9, Creatinine 0.76, Estim Creat Clear Calc 63.61, Est GFR (MDRD) Af Amer 103, Est GFR (MDRD) Non-Af 85, BUN/Creatinine Ratio 11.8, Glucose 96, Calcium 8.3 L, C-React Prot Ext Range 6.12 H Radiography Diagnostic Testing: Radiology Impression Echocardiogram 04/08/23 07:48 Interpretation Summary The estimated ejection fraction is 65 %. No evidence for diastolic dysfunction. Ordering Physician: Manuel Griffith Referring Physician: TAVARES PCP Performed By: Vicki Hanson RCS Physical Exam Narrative General: Alert, oriented, no apparent distress HEENT: Atraumatic, normocephalic Eyes: Anicteric, normal conjunctiva, extraocular movements grossly intact Neck: Supple Respiratory: Clear to auscultation bilaterally, normal respiratory effort Cardiovascular: Regular rate and rhythm GI: Soft, nontender, nondistended Extremities: No edema Musculoskeletal: Moving all extremities Neuro: No overt focal neurological deficits Skin: No rashes appreciated Psych: Cooperative Assessment & Plan Assessment/Plan (1) Syncope: QUALIFIERS: Syncope type: vasovagal syncope Qualified Code(s): R55 - Syncope and collapse (2) Nausea & vomiting: QUALIFIERS: Vomiting type: unspecified Qualified Code(s): R11.2 - Nausea with vomiting, unspecified (3) Aspiration into airway: QUALIFIERS: Encounter type: initial encounter Qualified Code(s): T17.908A - Unspecified foreign body in respiratory tract, part unspecified causing other injury, initial encounter PLAN: Plan #syncope and decreased level of consciousness/dizziness -CT and CTA head and neck negative -Npo -Gentle hydration -EKG w/ NSR -Admit to tele -when patient had nausea and vomiting in ED heart rate would go from 80s and 90s down to 40 indicating strong vagal response and suspect syncope was vasovagal in nature given this -04/09: Patient reports intermittent dizzy feeling when standing and sometimes when she lays back at night but even with manager e learning had difficulty further characterizing this, patient is not in any acute distress, MRI pending, echocardiogram unremarkable, lab work unrevealing #n/v -Unclear etiology -Liver function unremarkable -UA unremarkable -UDS positive for cannabinoids but otherwise negative -ppi ordered -04/08: Has not had nausea or vomiting for the past few hours, will obtain KUB however given this was primary problem likely leading to the vasovagal syncopal episode -04/09: Nausea vomiting have resolved #hypoxia?resolved -Pulse ox to mid to low 80's on RA and placed on O2 -Cannot r/o aspiration though xray no acute pulm process -was started on unasyn in ED and this was continued -ABG obtained in ED with a PO2 of 74, PCO2 of 49.8 and O2 sat 93 with pH of 7.34 -04/08: O2 sats resolved, no longer hypoxic -04/09: Resolved #DVT ppx: Lovenox subcu Ale Lawrence MD Time spent in the patient's overall evaluation,decision-making process, review of diagnostic data, adjustment of management, discussion with other providers, nursing nursing and ancillary staff involved in patient's care documentation, 38 minutes Charges/Coding Visit Charges Inpatient E&M: 94279 Subs Hosp L3
[2023-04-09 20:44] VITALS: BP 150/93; PULSE 70; RESP 16; TEMP 36.3; O2SAT 96
[2023-04-10 02:55] VITALS: BP 127/97; PULSE 86; RESP 16; TEMP 36.5; O2SAT 95
[2023-04-10 05:50] LABS: Absolute Lymphocyte Count 2.35 X10^3/uL (0.83-4.51); Absolute Neutrophil Count 5.9 X10^3/uL (2.0-7.7); Basophil# 0.05 X10^3/uL; Basophil% 0.6 % (0-1); Eosinophils% 1.1 % (0-5); Hematocrit 39.5 % (37-47); Hemoglobin 11.6 g/dL (12.0-15.0); Lymphocyte # 2.35 X10^3/ul (0.83-4.51); Lymphocyte % 26.3 % (19-41); Mean Corp Hgb Conc 29.4 g/dL (32-36); Mean Corpuscular Hgb 19.9 pg (27.0-32.0); Mean Corpuscular Volume 67.8 fL (81-99); Mean Platelet Vol. 11.1 fl (6.2-12.0); Monocyte# 0.56 X10^3/uL; Monocyte% 6.3 % (0-10); NRBC Flagged by Analyzer 0 % (0-5); Neutrophil # 5.85 X10^3/uL (2.7-7.7); Neutrophil % 65.3 % (47-70); Platelet Count 234 K/mm3 (150-450); RBC Distribution Width CV 15.3 % (11.6-14.6); RBC Distribution Width SD 36.4 fl (35.1-43.9); Red Blood Count 5.83 M/mm3 (4.2-5.4)
[2023-04-10 06:30] LABS: ALB/GLOB Ratio 0.8 RATIO (0.9-2.4); AST(SGOT) 11 U/L (15-37); Alanine Aminotransfer ALT/SGPT 12 U/L (13-56); Alkaline Phosphatase 66 U/L (45-117); Anion Gap 4 (5-15); BUN 7 mg/dL (7-18); BUN/Creat Ratio 9.6 RATIO (10-20); Calcium,Total 8.5 mg/dL (8.5-10.1); Chloride 108 mmol/L (98-107); Creatinine, Serum 0.73 mg/dL (0.55-1.02); EST Glomerular Filtration Rate 90 mL/min (>60); Est Glom Filt Rate - Afr Amer 108 mL/min (>60); Estimated Creatinine Clearance 66.22 ml/min; Globulin 3.7 g/dL (2.2-4.2); Glucose 93 mg/dL (74-106); Potassium 3.2 mmol/L (3.5-5.1); Protein, Total 6.7 g/dL (6.4-8.2); Sodium Level 139 mmol/L (136-145)
--- NOTE | 2023-04-10 11:04 | CASEMGMT ---
Patient does not have a Healthcare Power of Freight Car Repairer or Healthcare Living Will on file at [facility]. Patient is only visiting the [place]. Annalisa CHOUDHARY
[2023-04-10] MEDS: Potassium Chloride Oral Tablet 20 MEQ 40 MEQ PO (11:24)
--- NOTE | 2023-04-10 12:59 | PCM.DC.SUM ---
Providers Date of Admission: 04/08/23 Date of Discharge: 04/10/23 Primary Care Physician: No Primary Care Phys Reason For Visit: Episode of LOC Diagnosis Discharge Diagnosis (1) Syncope: Status: Acute Code(s): R55 - Syncope and collapse Qualifiers: Syncope type: vasovagal syncope Qualified Code(s): R55 - Syncope and collapse (2) Nausea & vomiting: Status: Acute Code(s): R11.2 - Nausea with vomiting, unspecified Qualifiers: Vomiting type: unspecified Qualified Code(s): R11.2 - Nausea with vomiting, unspecified (3) Aspiration into airway: Status: Acute Code(s): T17.908A - Unspecified foreign body in respiratory tract, part unspecified causing other injury, initial encounter Qualifiers: Encounter type: initial encounter Qualified Code(s): T17.908A - Unspecified foreign body in respiratory tract, part unspecified causing other injury, initial encounter Plan #syncope and decreased level of consciousness/dizziness #n/v-resolved #hypoxia likely 2/2 aspiration?resolved Medications at Discharge Home Medications NK 04/08/23 Hospital Course Procedures - (mri head, ct and cta head and neck, echo, kub) Summary of Care Provided Minutes Spent on Discharge: 45 Hospital Course: 52y/o female with no known past medical history presented to [facility] 04/08/2023 after syncopal episode. Patient does not speak any Turkmen and interviews had to be performed through workers compensation manager service and patient was fairly inconsistent with history and symptomatology however overall story based on multiple interviews by multiple providers as well as friend testimony who is with her indicate stories follows: Patient was at a dinner constitution party with her and friends and there was smoking marijuana and possibly drinking and patient had episode of throwing up and then lost consciousness and EMS was called. Her O2 was 80% and she was not waking up for any purposeful exam in the ED and she was placed on O2. CTA head and neck and brain CT within normal limits. She was maintaining her airway so she is not intubated. She did have more episodes of vomiting in the ED and when she did so she would have vagal response/become bradycardic. EKG showed sinus rhythm hospitalist consulted for admission. During admission patient continued to report some intermittent headache and intermittent dizziness but had difficulty with timelines and further clarifying symptomatology. Given the nausea and vomiting she had she did have a KUB which was unremarkable. Her hypoxia resolved shortly after admission and she no longer required O2. Was still somewhat tired but would wake up on exam and would eat and was cooperative and interactive. Echocardiogram unremarkable, MRI ordered with no acute process. Orthostatic vital signs were negative. Neurology consulted for assistance/guidance on any further possible work-up that may be needed depending on threshold of concern. Discussed with neurologist at length, during her exam patient had no focal deficits, no nystagmus, only reported that sometimes when she lays back at night she will get a spinning feeling but it is inconsistent and occasionally will have intermittent headaches that she was not particularly concerned about. was at bedside during exam and reported that patient is currently at baseline, patient awake and alert, cooperative. Given admitting syncopal episode presumably vasovagal secondary to vomiting with exam and further lab and imaging work-up unremarkable has not felt that any further work-up or management needed pursued per neurology and I am in agreement. Her hypoxia was likely secondary to. Decreased level of consciousness plus or minus episode of aspiration but she does not have any signs or symptoms of infection and O2 and mental status resolved. Nausea and vomiting resolved after patient was in the ER, given preceding history of smoking marijuana this may have contributed given inconsistent histories and subsequent interviews not being forthcoming difficult to say with certainty however all symptoms have resolved. On day of discharge patient was interviewed with at bedside with mining professionals and she reported doing well today, discussed instructions for post discharge and patient verbalized understanding, given opportunity ask any questions. Discharged home in stable condition after discussion with neurology. Physical Exam Narrative General: Alert, oriented, no apparent distress HEENT: Atraumatic, normocephalic Eyes: extraocular movements grossly intact Neck: Supple Respiratory: normal respiratory effort Cardiovascular: no edema appreciated GI: nondistended Extremities: Moving all extremities Neuro: No overt focal neurological deficits Psych: Cooperative Weight / BMI Weight Weight: 84.3 kg Body Mass Index (BMI) 36.3 ABG / Lab / Microbiology Data 04/10/23 05:15 04/10/23 05:15 Laboratory: Laboratory Results - last 24 hr 04/10/23 05:15: WBC 9.0, RBC 5.83 H, Hgb 11.6 L, Hct 39.5, MCV 67.8 L, MCH 19.9 L, MCHC 29.4 L, RDW Std Deviation 36.4, RDW Coeff of Mariposa 15.3 H, Plt Count 234, MPV 11.1, Immature Gran % (Auto) 0.400, Neut % (Auto) 65.3, Lymph % (Auto) 26.3, [place] % (Auto) 6.3, Eos % (Auto) 1.1, Baso % (Auto) 0.6, Absolute Neuts (auto) 5.9, Absolute Lymphs (auto) 2.35, Nucleated RBC % 0, Sodium 139, Potassium 3.2 L, Chloride 108 H, Carbon Dioxide 27.0, Anion Gap 4 L, BUN 7, Creatinine 0.73, Estim Creat Clear Calc 66.22, Est GFR (MDRD) Af Amer 108, Est GFR (MDRD) Non-Af 90, BUN/Creatinine Ratio 9.6 L, Glucose 93, Calcium 8.5, Total Bilirubin 0.50, AST 11 L, ALT 12 L, Alkaline Phosphatase 66, Total Protein 6.7, Albumin 3.0 L, Globulin 3.7, Albumin/Globulin Ratio 0.8 L Microbiology: Microbiology 04/08/23 01:41 Blood Culture (Wb) - Right Hand Blood Culture - Preliminary No growth in 48 hours. 04/08/23 01:46 Blood Culture (Wb) - Anticubital Left Blood Culture - Preliminary No growth in 48 hours. Radiography Diagnostic Testing: Radiology Impression Echocardiogram 04/08/23 07:48 Interpretation Summary The estimated ejection fraction is 65 %. No evidence for diastolic dysfunction. Ordering Physician: Manuel Griffith Referring Physician: NO PCP Performed By: Vicki Hanson RCS Brain MRI 04/09/23 11:30 IMPRESSION: No acute findings in the head/brain. Electronically Signed: Ryan Campoverde MD at 18:16 EDT Reading Location ID and State: [facility] / [place] , Service support , D/C Instructions Discharge Diet: No restrictions Meaningful Use Info Meaningful Use Diagnoses (Choose all that apply): None applicable Discharge Plan Admission Admit Date/Time: 04/08/23 05:12 Primary Reason for Your Visit: Episode of passing out and dizziness Attending Provider: Ale Lawrence Primary Care Provider: Care Physician,No Primary Consulting Providers: Manuel Griffith Instructions Patient Instructions: ED Dizziness, Uncertain Cause, ED Fall Prevention Additional Instructions / Restrictions: DISCHARGE INSTRUCTIONS PLEASE READ *Please take this with you to your next doctors appointment* -It is advised that you refrain from any marijuana use and would advise against consuming more than 1 alcoholic drink or less in a day when alcohol is consumed. -Please call your primary care provider's office upon discharge to schedule a hospital follow up within 1 week. -If you do not have a primary care physician of list of local primary care physicians can be provided for you upon discharge. Please ask for this list prior to discharge -For any concerning signs or symptoms please call 911 or proceed to the nearest emergency department Discharge Orders/Prescriptions Prescriptions: No Action NK Referrals / Follow Up: Care Physician,No Primary [Primary Care Provider] - ( -If you do not have a primary care physician of list of local primary care physicians can be provided for you upon discharge. Please ask for this list prior to discharge) Disposition Disposition (needs filled in before D/C Order can be placed): Home, Self Care Charges/Coding Visit Charges Inpatient E&M: 63367 Disch Hosp >30min
[2023-04-10 13:51] VITALS: BP 157/95; PULSE 79; RESP 16; TEMP 37.2; O2SAT 97
--- NOTE | 2023-04-10 13:51 | CASEMGMT ---
MK CM NOTE: Claire TERRAZAS, @ bedside reviewing d/c instructions w/pt and via ipad interpretor. Provided w/[facility] information/paperwork at this time and they were made aware via broacher and aware location/address located on paperwork. Pt/ have local friend who speaks [place] and can assist w/paperwork. Jody LEONARD RN CM
== END 2023-04-10 14:11 | disposition home or self-care (01) | DRG 312 ==
LOC: ED 05:17 → PCU 06:20
PROVIDERS: Admitting Provider Hospitalist; Emergency Provider Emergency Medicine; Visit Provider Internal Medicine
DX: R55 Syncope and collapse (principal); E66.9 Obesity, unspecified; T17.918A Gastric contents in respiratory tract, part unspecified causing other injury, initial encounter; F12.99 Cannabis use, unspecified with unspecified cannabis-induced disorder; R11.2 Nausea with vomiting, unspecified; X58.XXXA Exposure to other specified factors, initial encounter; R42 Dizziness and giddiness; Z68.36 Body mass index [BMI] 36.0-36.9, adult
CPT/HCPCS: 36415; 36600; 51702; 70450; 70496; 70498; 70553; 71045; 74018; 80048; 80053; 80076; 80307; 80329; 81001; 82077; 82140; 82803; 84443; 85025; 85652; 86140; 87040; 93005; 93306; 99285; A9575; J7030; J7120; Q9967; A4216; G0480; J0295; J2405